=== PATIENT | female | born 1985 | race Caucasian/White ===

== ENCOUNTER 2021-11-12 11:53 | Emergency (ER) | payer OTHER ==
[2021-11-12] MEDS ORDERED: CYCLOBENZAPRINE 10 MG TAB ONE (13:16)
--- NOTE | 2021-11-12 13:35 | ER ---
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 Coronavirus screen: Vaccine status: Patient reports receiving the 2nd dose of the covid vaccine. Ebola Screen: No symptoms or risks identified at this time. Initial Sepsis Screen: Does the patient meet any 2 criteria? No. Patient's initial sepsis screen is negative. Does the patient have a suspected source of infection? No. Patient's initial sepsis screen is negative. Risk Assessment: Do you want to hurt yourself or someone else? Patient reports no desire to harm self or others. Onset of symptoms was November 12, 2021 at 09:45. 13:06 Method Of Arrival: Ambulatory 3 13:06 Acuity: BRETT 4 eh3 Triage Assessment: 12:56 General: Appears in no apparent distress. uncomfortable, Behavior is calm, cooperative, eh3 appropriate for age. Pain: Complains of pain in right low back Pain radiates to right hip Pain currently is 7 out of 10 on a pain scale. at worst was 7 out of 10 on a pain scale. Quality of pain is described as aching, sharp, shooting, tender, pinching, Pain began suddenly, 3 hours ago. Is continuous, Alleviated by rest, repositioning, relaxation, Aggravated by increased activity, Noted to be resistant to movement, Goal of pain control is to perform activities of daily living, return to work. EENT: No signs and/or symptoms were reported regarding the EENT system. Neuro: Level of Consciousness is awake, alert, obeys commands, Oriented to person, place, time, situation. Cardiovascular: Capillary refill < 3 seconds Patient's skin is warm and dry. Respiratory: Airway is patent Respiratory effort is even, unlabored. GI: No signs and/or symptoms were reported involving the gastrointestinal system. : No signs and/or symptoms were reported regarding the genitourinary system. Derm: No signs and/or symptoms reported regarding the dermatologic system. Derm: No signs and/or symptoms reported regarding the dermatologic system. Musculoskeletal: Capillary refill < 3 seconds, Range of motion: limited in lower back and right hip. 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 She has had this pain before, it started about 2 years ago. She received steroid injections for back pain but states the most recent injection in June did not help the pain. Historical: - Allergies: 13:08 No Known Allergies; eh3 - Home Meds: 13:08 None [Active]; eh3 - PMHx: 13:08 None; eh3 - PSHx: 13:08 section; 2x; Operative procedure on knee; benign tumor removal; eh3 - Immunization history:: Adult Immunizations up to date, Client reports receiving the 2nd dose of the Covid vaccine. - Social history:: Smoking status: Patient denies any tobacco usage or history of. Patient uses alcohol, occasionally. Screenin:45 Abuse screen: Denies threats or abuse. Denies injuries from another. Nutritional ld1 screening: No deficits noted. Tuberculosis screening: No symptoms or risk factors identified. Fall Risk None identified. Assessment: 13:45 Reassessment: see triage assessment. ld1 Vital Signs: 12:56 BP 121 / 96; Pulse 108; Resp 20; Pulse Ox 100% on R/A; Weight 63.5 kg; Height 5 ft. 4 eh3 in. (162.56 cm); Pain 7/10; 13:06 BP 121 / 96; Pulse 108; Resp 20; Temp 98.4(TE); Pulse Ox 100% on R/A; Weight 63.5 kg; eh3 Height 5 ft. 4 in. (162.56 cm); Pain 7/10; 13:45 BP 126 / 89; Pulse 101; Resp 18; Pulse Ox 100% on R/A; ld1 13:06 Body Mass Index 24.03 (63.50 kg, 162.56 cm) 3 ED Course: 11:55 Patient arrived in ED. mr 12:05 Aravind Baumann is PHCP. jl9 13:08 Jennifer Tomlin, RN is Primary Nurse. ld1 13:08 Triage completed. 3 13:35 Aravind Baumann is PHCP. jl9 13:35 Dennis Ambriz DO is Attending Physician. jl9 13:45 Patient has correct armband on for positive identification. Placed in gown. Bed in low ld1 position. Call light in reach. Side rails up X2. central supply assistant on. Pulse ox on. NIBP on. Door closed. Noise minimized. Warm blanket given. 13:45 No provider procedures requiring assistance completed. Patient did not have IV access ld1 during this emergency room visit. 13:46 Arm band placed on right wrist. ld1 Administered Medications: 13:11 Drug: Flexeril (cyclobenzaprine) 10 mg Route: PO; ld1 Medication: 13:45 VIS not applicable for this client. ld1 Outcome: 13:33 Discharge ordered by . jl9 13:36 Discharge ordered by . jl9 13:45 Discharged to home ambulatory. ld1 13:45 Condition: stable 13:45 Discharge instructions given to patient, Instructed on discharge instructions, follow up and referral plans. medication usage, Demonstrated understanding of instructions, follow-up care, medications, Prescriptions given X 1. 13:46 Patient left the ED. ld1 Signatures: Lily Feliz Lauren, RN RN ld1 Vickie Ngo John jl9
--- NOTE | 2021-11-12 13:35 | EDPHYS ---
Physician Documentation [facility] Name: Alysia Sidhu Age: 35 yrs Sex: Female : 1985 Arrival Date: 11/12/2021 Time: 11:55 Bed 9 Private MD: ED Physician Dennis Ambriz HPI: 11/12 13:29 This 35 yrs old Female presents to ER via Ambulatory with complaints of Back jl9 Pain. 13:29 The patient presents with pain and an injury. The symptoms are located in the low back. jl9 Onset: The symptoms/episode began/occurred just prior to arrival. Location: right low back and low back area. Associated signs and symptoms: Pertinent positives: Pertinent negatives:. The problem was sustained when lifting patient. Modifying factors: the patient symptoms are aggravated by movement. Severity of symptoms: in the emergency department the symptoms have improved, mildly. The patient has experienced similar episodes in the past. The patient has been recently seen by a physician: the patient's primary care provider. Patient reportedly developed back pain immediately after lifting a patient. Patient has a history of lower back problems. . Historical: - Allergies: 13:08 No Known Allergies; eh3 - Home Meds: 13:08 None [Active]; eh3 - PMHx: 13:08 None; eh3 - PSHx: 13:08 section; 2x; Operative procedure on knee; benign tumor removal; eh3 - Immunization history:: Adult Immunizations up to date, Client reports receiving the 2nd dose of the Covid vaccine. - Social history:: Smoking status: Patient denies any tobacco usage or history of. Patient uses alcohol, occasionally. ROS: 13:31 Constitutional: Negative for fever, chills, and weight loss, Eyes: Negative for injury, jl9 pain, redness, and discharge, ENT: Negative for injury, pain, and discharge, Neck: Negative for injury, pain, and swelling, Cardiovascular: Negative for chest pain, palpitations, and edema, Respiratory: Negative for shortness of breath, cough, wheezing, and pleuritic chest pain, Abdomen/GI: Negative for abdominal pain, nausea, vomiting, diarrhea, and constipation. 13:31 MS/Extremity: Negative for injury and deformity, Skin: Negative for injury, rash, and discoloration, Neuro: Negative for headache, weakness, numbness, tingling, and seizure, Psych: Negative for depression, anxiety, suicide ideation, homicidal ideation, and hallucinations, Allergy/Immunology: Negative for hives, rash, and allergies, Endocrine: Negative for neck swelling, polydipsia, polyuria, polyphagia, and marked weight changes, Hematologic/Lymphatic: Negative for swollen nodes, abnormal bleeding, and unusual bruising. 13:31 Back: Positive for decreased range of motion, pain with movement, radiated pain. Exam: 13:32 Constitutional: This is a well developed, well nourished patient who is awake, alert, jl9 and in no acute distress. Head/Face: Normocephalic, atraumatic. Eyes: Pupils equal round and reactive to light, extra-ocular motions intact. Lids and lashes normal. Conjunctiva and sclera are non-icteric and not injected. Cornea within normal limits. Periorbital areas with no swelling, redness, or edema. ENT: Mucous membranes moist. Neck: Trachea midline, no thyromegaly or masses palpated, and no cervical lymphadenopathy. Supple, full range of motion without nuchal rigidity, or vertebral point tenderness. No Meningismus. Chest/axilla: Normal chest wall appearance and motion. Nontender with no deformity. No lesions are appreciated. Cardiovascular: Regular rate and rhythm with a normal S1 and S2. No gallops, murmurs, or rubs. Normal PMI, no JVD. No pulse deficits. Respiratory: Lungs have equal breath sounds bilaterally, clear to auscultation and percussion. No rales, rhonchi or wheezes noted. No increased work of breathing, no retractions or nasal flaring. Abdomen/GI: Soft, non-tender, with normal bowel sounds. No distension or tympany. No guarding or rebound. No evidence of tenderness throughout. 13:32 Pelvic Exam: Normal external genitalia. Speculum exam with closed cervical os, no discharge or bleeding noted. Bimanual exam with normal adnexa, no adnexal or cervical motion tenderness. Normal uterus. Female : Normal external genitalia. Skin: Warm, dry with normal turgor. Normal color with no rashes, no lesions, and no evidence of cellulitis. MS/ Extremity: Pulses equal, no cyanosis. Neurovascular intact. Full, normal range of motion. Neuro: Awake and alert, GCS 15, oriented to person, place, time, and situation. Cranial nerves II-XII grossly intact. Motor strength 5/5 in all extremities. Sensory grossly intact. Cerebellar exam normal. Normal gait. Psych: Awake, alert, with orientation to person, place and time. Behavior, mood, and affect are within normal limits. 13:32 Back: ROM is painful, with all movement, muscle spasm, is appreciated in the lumbar area and right low back. Vital Signs: 12:56 BP 121 / 96; Pulse 108; Resp 20; Pulse Ox 100% on R/A; Weight 63.5 kg; Height 5 ft. 4 eh3 in. (162.56 cm); Pain 7/10; 13:06 BP 121 / 96; Pulse 108; Resp 20; Temp 98.4(TE); Pulse Ox 100% on R/A; Weight 63.5 kg; eh3 Height 5 ft. 4 in. (162.56 cm); Pain 7/10; 13:45 BP 126 / 89; Pulse 101; Resp 18; Pulse Ox 100% on R/A; ld1 13:06 Body Mass Index 24.03 (63.50 kg, 162.56 cm) eh3 MDM: 12:54 Patient medically screened. jl9 13:29 Data reviewed: vital signs, nurses notes. jl9 Administered Medications: 13:11 Drug: Flexeril (cyclobenzaprine) 10 mg Route: PO; ld1 Disposition: 21:58 Co-signature as Attending Physician, Dennis DIAL was immediately available on-site ms3 in the Emergency Department for consultation in the care of the patient. . Disposition Summary: 11/12/21 13:36 Discharge Ordered Location: Home(11/12/21 13:36) jl9 Condition: Stable(11/12/21 13:36) jl9 Diagnosis - Strain of muscle, fascia and tendon of lower back(11/12/21 13:36) jl9 Followup: jl9 - With: Private Physician - When: 1 - 2 days - Reason: Recheck today's complaints, Continuance of care, Re-evaluation by your physician Discharge Instructions: - Discharge Summary Sheet jl9 - Acute Back Pain, Adult jl9 Forms: - Medication Reconciliation Form jl9 - Thank You Letter jl9 - Work release form eh3 - Antibiotic Education jl9 - Prescription Opioid Use jl9 Prescriptions: - Cyclobenzaprine 10 mg Oral Tablet - take 1 tablet by ORAL route every 8 hours As needed; 30 tablet; Refills: 0, jl9 Product Selection Permitted Signatures: Dennis Ambriz DO DO ms3 Jennifer Tomlin RN RN ld1 Vickie Ngo eh3 Aravind Baumann jl9 Corrections: (The following items were deleted from the chart) 13:36 13:33 Home jl9 jl9 13:36 13:33 Stable jl9 jl9 13:36 13:33 Strain of muscle, fascia and tendon of lower back jl9 jl9
[2021-11-12 13:55] VITALS: TEMP 98.4; O2SAT 100
[2021-11-12 13:57] VITALS: BP 126/89
== END 2021-11-12 13:46 | disposition home or self-care (01) ==
LOC: ER 11:53
DX: S39.012A Strain of muscle, fascia and tendon of lower back, initial encounter (principal)
CPT/HCPCS: 99284